=== PATIENT | female | born 1990 | race Caucasian/White ===

== ENCOUNTER 2019-11-17 18:25 | Emergency (ER) | payer OTHER ==
[~2019-11-17] VITALS: Ht 172.7 cm; Wt 90.7 kg
[~2019-11-17 18:25] MED LIST: ACETAMINOPHEN-1 EAC1 PO; AMOXICILLIN 50500 M1; BACTRIM DS TAB1 EACH PO; CHLOROTHIAZIDE500 M2; CHLORZOXAZONE500 MG; CORTISPORIN OTI10 ML; CYCLOBENZAPRINE5 MG PO; DELTASONE20 MG PO; DEPO-PROVE150 MG/1 M IM; DEPO-PROVER150 MG/M1 IM; FLEXERIL PO; GENTAK 3 MG/M3 MG/M1 OP; HYDROCODONE-AP1 EAC6 PO; IBUPROFEN 200200 M1 PO; IBUPROFEN 800800 M1 PO; IBUPROFEN 800800 MG PO; INDOCIN50 MG; LIORESAL 10 MG10 MG PO; MEDROLDOSEPACK PO; MOBIC7.5 MG PO; MUSCLE RELAXER PO; NAPROSYN500 M1 PO; NOHOMEMEDICATIONS; NORCO 5-325 TA1 EAC1 PO; NORCO 5-325 TA1 EACH PO; PREDNISONE50 MG PO; ROBAXIN 750 MG750 M1 PO; ROBAXIN500 MG PO; TRAMADOL 50 MG50 MG; VIRTUSSIN AC L473 ML PO; ZANTAC 7575 MG PO; ZOFRAN4 MG PO
[2019-11-17 18:44] LABS: ABSOLUTE EOSINOPHILS 0.3 thou/uL (0.0-0.7); ABSOLUTE MONOCYTES 0.6 thou/uL (0.0-1.2); ABSOLUTE NEUTROPHILS 6.2 thou/uL (1.6-8.1); BASOPHILS 0.4 %; EOSINOPHILS 2.7 %; HEMATOCRIT 36.2 % (37.0-47.0); HEMOGLOBIN 12.3 gm/dL (12.0-15.0); LYMPHOCYTES 29.3 %; MCH 29.6 pg (26.0-34.0); MCV 86.9 fL (80.0-100.0); MONOCYTES 6.3 %; MPV 8.4 fl. (7.2-11.1); NUCLEATED RBCS 0 /100WBC; PLATELET COUNT* 347 thou/uL (150-400); POLYS 61.3 %; RBC 4.16 mil/uL (4.20-5.00); RDW-CV 14.6 % (10.5-14.5); WBC 10.1 thou/uL (4.0-11.0)
[2019-11-17 18:54] LABS: APTT 29.2 Seconds (25.0-31.3); PROTIME 10.5 Seconds (9.20-11.50)
[2019-11-17 18:59] LABS: CALCIUM 8.9 mg/dL (8.5-10.1); CREATININE 0.8 mg/dL (0.6-1.3); POTASSIUM 3.6 mmol/L (3.5-5.1)
[2019-11-17 19:08] LABS: CK-MB MASS 0.5 ng/mL (<0.5-3.6); MAGNESIUM 1.7 mg/dL (1.8-2.4); TOTAL BILIRUBIN 0.2 mg/dL (<0.1-1.0)
[2019-11-17] MEDS ORDERED: LEXAPRO5 MG PO (19:26)
[2019-11-17 19:34] VITALS: BP 118/72
--- NOTE | 2019-11-18 11:53 | EKG ---
[place] [address] ELECTROCARDIOGRAM REPORT Name: SANTI FISCHER Room: [facility]#: [id number] Admission: 11/17/19 Attend Phys: Discharge: 11/17/19 Date of : 89 Date of Service: 11/17/191833 Report #: [id number] THIS REPORT FOR: //name// [facility] ED Test Date: 2019-11-17 Test Time: 18:34:22 Pat Name: SANTI FISCHER Department: Room: Gender: [employer]: : 1990 Requested By: Thor Engel Order Number: [id number] MD: Connor Day Measurements Intervals [place] Rate: 67 P: 48 HI: 141 QRS: 63 QRSD: 109 T: 47 QT: 424 QTc: 448 Interpretive Statements Sinus rhythm No previous ECG available for comparison Electronically Signed On 11-18-2019 11:53:43 CDT by Connor Day [email or web address] <ELECTRONICALLY SIGNED> By: Connor Day MD, [facility] 11/18/19 [id number] Connor Day MD, FACC /EPI
== END 2019-11-17 19:34 | disposition home or self-care (01) ==
LOC: M.ERS 18:25
PROVIDERS: Family Medicine
DX: F43.22 Adjustment disorder with anxiety (principal); R07.9 Chest pain, unspecified

== ENCOUNTER 2020-09-19 06:53 | Emergency (ER) | payer OTHER ==
[~2020-09-19] VITALS: Ht 172.7 cm; Wt 95.3 kg
[~2020-09-19 06:53] MED LIST changes: +LEXAPRO5 MG PO
[2020-09-19] MEDS ORDERED: FLAGYL500 M1 PO (07:02)
[2020-09-19 10:30] LABS: HEMATOCRIT 37.4 % (37.0-47.0); HEMOGLOBIN 12.7 gm/dL (12.0-15.0); MCH 29.2 pg (26.0-34.0); MCHC 33.9 g/dL (28.0-37.0); MCV 86.2 fL (80.0-100.0); MPV 8.5 fl. (7.2-11.1); RBC 4.34 mil/uL (4.20-5.00); WBC 9.1 thou/uL (4.0-11.0)
[2020-09-19] MEDS ORDERED: MECLIZINE HCL25 M1 PO (10:42)
[2020-09-19 10:44] LABS: CALCIUM 8.9 mg/dL (8.5-10.1); CREATININE 0.7 mg/dL (0.6-1.3); POTASSIUM 4.7 mmol/L (3.5-5.1)
[2020-09-19 10:57] VITALS: BP 122/68
== END 2020-09-19 10:58 | disposition home or self-care (01) ==
LOC: M.ERS 06:53
PROVIDERS: Emergency Medicine Emergency Medical Services
DX: H81.11 Benign paroxysmal vertigo, right ear (principal)